=== PATIENT | male | born 1950 | race Caucasian/White ===

== ENCOUNTER 2017-10-17 11:28 | Inpatient (IN) | payer MEDICARE, OTHER ==
[2017-09-19 10:49] VITALS: BMI 29.0
--- NOTE | 2017-09-19 11:21 | PAT Medication Instructions ---
Service Date Sep 19, 2017. Current Home Medication List Acetaminophen (Tylenol), 1,500 MG PO Calcium Carbonate-Vitamin D (Calcium + D), 1 TAB PO QPM Ibuprofen (Advil), 600-800 MG PO Q6H Multivitamin (Multivitamin), 1 TAB PO QPM Simvastatin (Zocor), 20 MG PO QPM Medication Instructions For Your Scheduled Surgery - CHECK WITH YOUR SURGEON FOR INSTRUCTIONS FOR: Ibuprofen (Advil), 600-800 MG PO Q6H - Hold the following medications the morning of surgery: Acetaminophen (Tylenol), 1,500 MG PO (can be taken up to four hours before surgery) - Take the following medications as scheduled the night before surgery: Simvastatin (Zocor), 20 MG PO QPM Multivitamin (Multivitamin), 1 TAB PO QPM Calcium Carbonate-Vitamin D (Calcium + D), 1 TAB PO QPM OTHERWISE NOTHING TO EAT OR DRINK AFTER MIDNIGHT If you have any questions please call us at [phone] or [phone] or [phone]
--- NOTE | 2017-09-19 12:16 | DIAGNOSTIC IMAGING REPORT ---
CHEST 2 VIEWS ROUTINE CLINICAL HISTORY: 67 years-old Male presenting with pat. TECHNIQUE: PA and lateral views of the chest were obtained. COMPARISON: 04/18/2013. FINDINGS: Atherosclerosis of aortic arch. Cardiac silhouette normal in size. Lungs and pleural spaces clear. Mild extra curvature of the thoracic spine. Upper abdomen normal. IMPRESSION: 1. No acute cardiopulmonary disease. Electronically signed by: Evert Osborn M.D. 09/19/2017 12:14 PM Dictated Date/Time: 09/19/2017 12:12 PM
[2017-09-19 13:12] LABS: BASO % 0.5 %; BASO ABS # 0.03 K/uL (0-0.2); COMPLETE YES; EOS % 1.4 %; HEMATOCRIT 45.3 % (42-52); IG% 0.2 %; LYMPH ABS # 1.58 K/uL (1.2-3.4); MEAN CELL VOLUME 87.6 fL (80-100); MEAN CORPUSCULAR HEMOGLOBIN 28.2 pg (25-34); MEAN CORPUSCULAR HGB CONC 32.2 g/dl (32-36); MONO % 10.4 %; NEUT % 60.5 %; PLATELET COUNT 228 K/uL (130-400); RED BLOOD COUNT 5.17 M/uL (4.7-6.1); WHITE BLOOD COUNT 5.85 K/uL (4.8-10.8)
[2017-09-19 13:19] LABS: BUN/CREATININE RATIO 12.9 (10-20); CALCIUM 9.3 mg/dl (8.5-10.1); CREATININE 1.15 mg/dl (0.60-1.40); POTASSIUM 4.6 mmol/L (3.5-5.1)
[2017-09-19 13:24] LABS: PARTIAL THROMBOPLASTIN RATIO 1.2; PROTHROMBIN TIME (PATIENT) 10.6 SECONDS (9.0-12.0)
[2017-09-19 13:31] LABS: URINE APPEARANCE CLEAR (CLEAR); URINE BILIRUBIN NEG (NEG); URINE COLOR YELLOW; URINE NITRITE NEG (NEG); URINE PH 6.5 (4.5-7.5); URINE SPECIFIC GRAVITY 1.017 (1.000-1.030); UROBILINOGEN NEG (NEG)
[2017-09-19 13:38] LABS: MANUAL MICROSCOPIC REQUIRED? NO; REVIEW REQ? NO
[2017-09-19 13:49] LABS: ESTIMATED AVERAGE GLUCOSE 111 mg/dl; HA1C FLAG Normal (Normal)
--- NOTE | 2017-10-16 19:31 | HISTORY & PHYSICAL EXAMINATION ---
DATE OF ADMISSION: 10/17/2017 HISTORY OF PRESENT ILLNESS: The patient presents as a 67-year-old, 5 feet 10 inches, 205 pounds white male being seen and evaluated for complaints of ongoing pain attributable to his right shoulder. He presents with osteoarthritis of his right shoulder for hemiarthroplasty versus total shoulder arthroplasty pending findings at the time of surgery. He has failed attempts at conservative management including physical therapy, anti-inflammatories, relative rest, activity modification, viscosupplementation as well as corticosteroid injection. He presents for shoulder arthroplasty, right shoulder. PAST MEDICAL HISTORY: Significant for hypercholesterolemia, sleep apnea. He denies history of thyroid disease, diabetes or other metabolic disease. FAMILY HISTORY: Otherwise unremarkable and noncontributory. SOCIAL HISTORY: The patient denies smoking. At least 1 alcoholic drink per week. No recreational drug use. PAST SURGICAL HISTORY: Significant for previous right knee surgery. ALLERGIES: None. MEDICATIONS: Include Simvastatin A 66-year-old old white male with the above findings noted. He has been nonresponsive to conservative therapy and presents for shoulder arthroplasty. PHYSICAL EXAMINATION: HEENT: Otherwise unremarkable. HEART: Regular at 72 beats per minute. No murmurs noted. LUNGS: Clear without rales, rhonchi, or wheezes noted. ABDOMEN: Soft, nontender, nondistended. Bowel sounds are present. RECTAL: No rectal examination was performed. MUSCULOSKELETAL EXAMINATION: Consistent with that of right shoulder osteoarthritis with crepitation, limited range of motion with external rotation to neutral, limited forward flexion to 150 degrees. IMPRESSION AND PLAN: The patient denies any relief with conservative management, patient presents for shoulder hemiarthroplasty versus total shoulder arthroplasty pending findings at time of surgery. JOYA
[2017-10-17] VITALS (7 sets, daily range): BP systolic 112–152; BP diastolic 66–90; PULSE 61–84; TEMP 36.4–36.7; O2SAT 93–99; Ht 177.8 cm; Wt 93.8 kg
[~2017-10-17] VITALS: Ht 177.8 cm; Wt 93.8 kg
--- NOTE | 2017-10-17 11:16 | History & Physical Bridge Note ---
H&P Re-Evaluation Bridge Note: I have examined the patient, reviewed the History & Physical and in the interval since the performance of the History & Physical I have noted the following changes of clinical significance: No changes noted
[~2017-10-17 11:28] MED LIST: ACET-1256 PO; ACETAMINOPHEN 500 MG TAB PO SCH; BUPIVACAINE 0.25% 30 ML VIAL ONE; CALC600T9 PO; CEFAZOLIN 2000MG IV PUSH 10 ML IV SCH; CeleBREX 200 MG CAP PO SCH; DEXAMETHASONE 4 MG TAB PO SCH; DEXAMETHASONE SOD INJ 4 MG/ML VIAL ONE; EpINEphrine INJ 1MG/ML AMP 1 MG/ML AMP ONE; FAMOTIDINE 20 MG TAB PO SCH; GABAPENTIN 300 MG CAP PO SCH; IBUP-1050 PO; LACTATED RINGER'S 1000ML 1,000 ML IV SCH; METOCLOPRAMIDE HCL 10 MG TAB PO SCH; MULT-506 PO; ROPIVACAINE 5MG/ML 30 ML 150 MG, BUPIVACAINE 0.5% MPF INJ 30 ML, EpINEphrine HCL INJ 0.... INFIL SCH; SIMV20TA5 PO
[2017-10-17] MEDS ORDERED: GLYCOPYRROLATE INJ 0.2 MG/ML VIAL ONE ×2 (11:53→14:43)
[2017-10-17] MEDS ORDERED: EpHEDrine SULFATE 50MG/5ML SYR ONE (11:53)
[2017-10-17] MEDS ORDERED: MIDAZOLAM HCL 1 MG/ML 2ML VIAL ONE (11:53)
[2017-10-17] MEDS ORDERED: LIDOCAINE HCL 2% 2 ML VIAL (20MG/ML) ONE (11:53)
[2017-10-17] MEDS ORDERED: ONDANSETRON INJ 2 MG/ML 2 ML VIAL ONE (11:53)
[2017-10-17] MEDS ORDERED: DEXAMETHASONE SOD INJ 4 MG/ML VIAL ONE ×2 (11:53→14:43)
[2017-10-17] MEDS ORDERED: NEOSTIGMINE METHYLSULFATE 5 MG/5 ML SYR ONE (11:53)
[2017-10-17] MEDS ORDERED: PROPOFOL IV EMULSION 10 MG/ML 20 ML VIAL IV ONE (11:53)
[2017-10-17] MEDS ORDERED: ROCURONIUM BROMIDE 10 MG/ML 5 ML VIAL IV ONE ×2 (11:53→15:10)
[2017-10-17] MEDS ORDERED: LARYING-O-JET KIT (LTA) ONE ×2 (11:53)
[2017-10-17] MEDS ORDERED: FENTANYL CITRATE INJ 50 MCG/1 ML 2 ML VIAL ONE (11:53)
[2017-10-17] MEDS ORDERED: THROMBIN FOR SOLN 20000 UNIT KIT ONE (13:02)
[2017-10-17] MEDS ORDERED: BACITRACIN 50000 UNIT VIAL ONE (13:02)
[2017-10-17] MEDS ORDERED: FENTANYL CITRATE INJ 50 MCG/1 ML 2 ML VIAL IV PRN (14:15)
[2017-10-17] MEDS ORDERED: ONDANSETRON INJ 2 MG/ML 2 ML VIAL IV PRN ×2 (14:15→16:00)
[2017-10-17] MEDS ORDERED: ATROPINE SULFATE 0.1 MG/ML 5ML SYR IV PRN (14:15)
[2017-10-17] MEDS ORDERED: EpHEDrine SULFATE INJ 50 MG/ML AMP IV PRN (14:15)
[2017-10-17] MEDS ORDERED: ORTHO JOINT ANESTHETIC ONE (15:14)
--- NOTE | 2017-10-17 15:36 | [facility] Operative Report ---
Operative Report Operative Date Oct 17, 2017. Pre-Operative Diagnosis Right shoulder osteoarthritis Post-Operative Diagnosis Right shoulder osteoarthritis Procedure(s) Performed Right Shoulder Hemarthroplasty, Tournier hemiarthroplasty with 6 be standard short stem angle 132.586 mm stem humeral head [address] Vamshi Rios Tierce Filler Surgeon(s) Anton Oglesby PA-C Estimated Blood Loss 15ML Findings Patient presents with severe DJD of the humeral head with osteophytes as well as osteophytes in the anterior glenoid patient is failed attempts at conservative management and physical therapy anti-inflammatories relative rest activity modification presents for shoulder hemiarthroplasty. Specimens A: Right Humeral Head and Tissue Complication(s) None Disposition Recovery Room / PACU Indications Patient presents for shoulder and knee arthroplasty after failing attempts at conservative management is failed attempted injections anti-inflammatories Roto- Rest activity modification presents today for shoulder right shoulder hemiarthroplasty. Description of Procedure After proper prepping draping of the right upper 70 anterior deltopectoral incision was made dissection carried out through the cephalic veins milligrams care for protect and retract lateralward with the deltoid of the anterior deltopectoral interval having the developed both proximally and distally the wound was irrigated with copious amounts of sterile saline solution the anterior subscapularis tendon was socially reflected off the anterior humeral head the humeral head was then subsequently delivered from the wound the osteophytes and marginal ossifies were all removed as were the office flexion the anterior glenoid loperamide debris was removed the osteotomy of proximal humeral head was performed the trials were placed and sized to a size 6 be standard short stem 86 mm head 132.5 angle gave excellent anatomic fit fit subsequently have informed thorough irrigation debridement lavage the anterior cortex was drilled with standard drill bit for placement #5 FiberWire the trialing having been completed the final component was socially press-fit into position and anatomic excellent position socially the subscapularis repaired the rotator interval was repaired the deltopectoral interval was repaired #2-0 Vicryl skin was closed with skin carmela patient placed in shoulder mobilizer taken recovery in stable condition Anton HERNANDEZ was necessary for prepping draping retraction wound closure defect is subcutaneous and skin I attest to the content of the Intraoperative Record and any orders documented therein. Any exceptions are noted below.
[2017-10-17] MEDS ORDERED: MoRPHine SULFATE 2 MG/ML CARP IV PRN (16:00)
[2017-10-17] MEDS ORDERED: OXYCODONE HCL IR 5 MG TAB (IMMEDIATE RELEASE) PO PRN (16:00)
[2017-10-17] MEDS ORDERED: ALUMINUM/MAGNESIUM SUSP 30 ML UDC PO PRN (16:00)
[2017-10-17] MEDS ORDERED: MAGNESIUM HYDROXIDE SUSP 30 ML UDC PO PRN (16:00)
--- NOTE | 2017-10-17 16:48 | DIAGNOSTIC IMAGING REPORT ---
R SHOULDER MIN 2 VIEWS ROUTINE CLINICAL HISTORY: Post shoulder surgery COMPARISON: None. DISCUSSION: Evidence for right shoulder arthroplasty. Good contact between prosthetic and underlying bone. Expected soft tissue postoperative change IMPRESSION: Anatomic alignment status post right shoulder arthroplasty The above report was generated using voice recognition software. It may contain grammatical, syntax or spelling errors. Electronically signed by: Stefan Nichols M.D. 10/17/2017 4:47 PM Dictated Date/Time: 10/17/2017 4:47 PM
--- NOTE | 2017-10-17 16:49 | Anesthesiology Progress Note ---
Anesthesia Post Op Note Date & Time Oct 17, 2017 at 16:48 Vital Signs Pain Intensity: 0 Vital Signs Past 12 Hours Date Time Temp Pulse Resp B/P (MAP) Pulse Ox O2 Delivery O2 Flow Rate FiO2 10/17/17 16:45 56 16 138/81 100 Nasal Cannula 2 10/17/17 16:30 36.4 50 17 144/82 99 Nasal Cannula 2 10/17/17 16:20 58 17 150/86 99 Nasal Cannula 2 10/17/17 16:10 58 16 145/88 100 Oxymask 10 10/17/17 16:00 62 12 163/96 99 Oxymask 10 10/17/17 15:53 36.2 70 20 157/69 99 Oxymask 10 10/17/17 11:55 36.5 61 15 138/90 97 Room Air Notes Mental Status: alert / awake / arousable, participated in evaluation Pt Amnestic to Procedure: Yes Nausea / Vomiting: adequately controlled Pain: adequately controlled Airway Patency, RR, SpO2: stable & adequate BP & HR: stable & adequate Hydration State: stable & adequate Anesthetic Complications: no major complications apparent
[2017-10-17] MEDS: D5W AND 1/2NSS + 20MEQ KCL 1,000 ML IV SCH (18:14)
[2017-10-17] MEDS: KETOROLAC TROMETHAMINE 15 MG/ML VIAL IV. SCH ×2 (18:15→23:46)
[2017-10-17] MEDS ORDERED: SIMVASTATIN 20 MG TAB PO SCH (21:00)
[2017-10-17] MEDS: DOCUSATE SODIUM 100 MG CAP PO SCH (21:38)
[2017-10-17] MEDS: CEFAZOLIN IV 2,000 MG in SYRINGE 0 ML IV SCH (21:39)
[2017-10-17] MEDS: ACETAMINOPHEN 500 MG TAB PO SCH (21:39)
[2017-10-18 03:30] VITALS: BP 118/76; PULSE 88; TEMP 36.6; O2SAT 94
[2017-10-18] MEDS: D5W AND 1/2NSS + 20MEQ KCL 1,000 ML IV SCH (04:16)
[2017-10-18] MEDS: CEFAZOLIN IV 2,000 MG in SYRINGE 0 ML IV SCH (05:28)
[2017-10-18] MEDS: ACETAMINOPHEN 500 MG TAB PO SCH (05:29)
[2017-10-18] MEDS: KETOROLAC TROMETHAMINE 15 MG/ML VIAL IV. SCH ×2 (05:29→12:52)
[2017-10-18 06:03] LABS: HEMATOCRIT 43.8 % (42-52); MEAN CELL VOLUME 86.6 fL (80-100); MEAN CORPUSCULAR HEMOGLOBIN 27.1 pg (25-34); MEAN CORPUSCULAR HGB CONC 31.3 g/dl (32-36); MEAN PLATELET VOLUME 11.1 fL (7.4-10.4); PLATELET COUNT 239 K/uL (130-400); RED BLOOD COUNT 5.06 M/uL (4.7-6.1); WHITE BLOOD COUNT 11.93 K/uL (4.8-10.8)
[2017-10-18 06:38] LABS: BUN/CREATININE RATIO 14.7 (10-20); CALCIUM 8.4 mg/dl (8.5-10.1); CREATININE 1.38 mg/dl (0.60-1.40)
[2017-10-18 07:20] VITALS: BP 136/77; PULSE 88; TEMP 36.2; O2SAT 94
--- NOTE | 2017-10-18 08:20 | Orthopedic Progress Note ---
Orthopedic Progress Note Date of Service Oct 18, 2017. Subjective Post OP Day: 1 Reports: feeling well, Denies: chest pain, SOB, nausea / vomiting, light headedness, calf pain Objective calves soft nontender, N/V intact, capillary refill less than 2 sec., dressing C /D/I, A&O x3, hemovac drainage (265/75CC PER SHIFT) Date Time Temp Pulse Resp B/P (MAP) Pulse Ox O2 Delivery O2 Flow Rate FiO2 10/18/17 07:20 Room Air 10/18/17 07:20 36.2 88 16 136/77 (96) 94 Room Air 10/18/17 03:30 36.6 88 18 118/76 (90) 94 Room Air 10/17/17 23:45 Room Air 10/17/17 22:55 36.6 84 18 112/66 (81) 94 Room Air 10/17/17 20:12 36.6 77 18 132/69 (90) 94 Room Air 10/17/17 19:02 36.4 70 18 141/69 (93) 93 Room Air 10/17/17 18:12 Room Air 10/17/17 18:02 36.5 80 18 130/75 (93) 97 Nasal Cannula 2.0 10/17/17 17:30 36.7 65 18 152/87 (108) 99 Nasal Cannula 2.0 10/17/17 17:00 Nasal Cannula 2.0 10/17/17 17:00 Nasal Cannula 2.0 10/17/17 17:00 36.4 65 18 136/78 (97) 96 Nasal Cannula 2.0 10/17/17 16:45 56 16 138/81 100 Nasal Cannula 2 10/17/17 16:30 36.4 50 17 144/82 99 Nasal Cannula 2 10/17/17 16:20 58 17 150/86 99 Nasal Cannula 2 10/17/17 16:10 58 16 145/88 100 Oxymask 10 10/17/17 16:00 62 12 163/96 99 Oxymask 10 10/17/17 15:53 36.2 70 20 157/69 99 Oxymask 10 10/17/17 11:55 36.5 61 15 138/90 97 Room Air Laboratory Results 24 Hours: Test 10/18/17 05:21 Hematocrit 43.8 % Hemoglobin 13.7 g/dL Assessment & Plan Assessment: POD#1 SP RIGHT SHOULDER HEMIARTHROPASTY Plan: PT/OT DVT PROPH- PAIN MANAGEMENT- RAMIRO, TYLENOL DC PLANNING- DC HOME TODAY
[2017-10-18] MEDS ORDERED: ACET-1256 PO (08:21)
[2017-10-18] MEDS ORDERED: RXC5 PO (08:21)
[2017-10-18] MEDS ORDERED: CLB200 PEG (08:21)
[2017-10-18] MEDS ORDERED: ONDA8TAB6 PO (08:21)
--- NOTE | 2017-10-18 08:22 | Discharge Instructions ---
Discharge Instructions Date of Service Oct 18, 2017. Admission Reason for Admission: Right Shoulder Osteoarthritis Discharge Discharge Diagnosis / Problem: SP RIGHT SHOULDER HEMIARTHROPLASTY Discharge Goals Goal(s): Decrease discomfort, Improve function, Increase independence Activity Recommendations Activity Limitations: per Instructions/Follow-up section . Instructions / Follow-Up Instructions / Follow-Up ACTIVITY RECOMMENDATIONS: SELF CARE INSTRUCTIONS AFTER TOTAL SHOULDER ARTHROPLASTY A. You may do daily exercises as taught in physical therapy while in hospital. No lifting with the operative arm. Please schedule your outpatient physical therapy appointment to begin within 2-3 days after leaving the hospital. Specific restrictions will be written on your physical therapy prescription that is provided to you. B. You are to wear your sling/immobilizer at all times EXCEPT when performing your daily exercises, participating in physical therapy and for hygiene purposes. C. You may perform dry, daily dressing changes. Please keep your incision covered. You may shower 48 hours after surgery. Do not apply soap or any ointment/ lotions directly over incision. Do not soak incision in bath tub/swimming pool. D. You may use ice as needed to operative shoulder. SPECIAL CARE INSTRUCTIONS: MEDICATION INSTRUCTIONS: *It is recommended you take Aspirin 325mg daily for four weeks post-op. VERY IMPORTANT TO READ AND REVIEW A. There are a few signs you need to watch for after you are home. Call [facility] at [phone] if you experience any of the followin. Increased severe shoulder pain. Some pain is expected especially when you exercise. 2. Increased swelling in you shoulder or arm; pain or swelling in either upper extremity. 3. Any fluid drainage from the incision. 4. Shortness of breath or chest pain. B. Please call [facility] at [phone] if you have any questions or concerns about your operation or recovery. C. Call your physician if: 1. Temperature is greater than 101 degrees (F). 2. Pain is not relieved by prescribed pain medications. 3. Increase drainage or redness from incision. 4. Unanswered questions or concerns. FOLLOW UP VISIT: Please call [facility] at [phone] to schedule a follow up appointment with Dr. NUNO or his PA in 12-14 days from your surgery date. Current Hospital Diet Patient's current hospital diet: Regular Diet Discharge Diet Recommended Diet: Regular Diet Procedures Procedures Performed: Right Shoulder Hemarthroplasty, Tournier hemiarthroplasty with 6 be standard short stem angle 132.586 mm stem humeral head 52 x 23 Pending Studies Studies pending at discharge: no Laboratory Results Hemoglobin A1c Test 09/19/17 11:35 Range/Units Estimated Average Glucose 111 mg/dl Hemoglobin A1c 5.5 4.5-5.6 % Medical Emergencies . Who to Call and When: Medical Emergencies: If at any time you feel your situation is an emergency, please call 911 immediately. . Non-Emergent Contact Non-Emergency issues call your: Surgeon . "Provider Documentation" section prepared by Janey Woodruff. . VTE Core Measure Inpt VTE Proph given/why not?: Divya Chao, SCD's [place] Drug Monitoring Program Search Results: patient reviewed within database, no issues identified
[2017-10-18] MEDS: DOCUSATE SODIUM 100 MG CAP PO SCH (08:34)
[2017-10-18 09:00] VITALS: BP 136/77; PULSE 88; TEMP 36.2; O2SAT 94
[2017-10-18] MEDS ORDERED: PANTOprazole SOD 40 MG TAB PO SCH (09:00)
[2017-10-18] MEDS ORDERED: MULTIVITAMIN TAB PO SCH (09:00)
[2017-10-18 09:56] VITALS: BP 126/74; PULSE 99; O2SAT 94
--- NOTE | 2017-10-18 10:19 | Anesthesiology Progress Note ---
Anesthesia Post Op Note Date & Time Oct 18, 2017 at 10:19 Vital Signs Vital Signs Past 12 Hours Date Time Temp Pulse Resp B/P (MAP) Pulse Ox O2 Delivery O2 Flow Rate FiO2 10/18/17 09:00 36.2 88 16 94 Room Air 10/18/17 07:20 Room Air 10/18/17 07:20 36.2 88 16 136/77 (96) 94 Room Air 10/18/17 03:30 36.6 88 18 118/76 (90) 94 Room Air 10/17/17 23:45 Room Air 10/17/17 22:55 36.6 84 18 112/66 (81) 94 Room Air Notes Mental Status: alert / awake / arousable, participated in evaluation Pt Amnestic to Procedure: Yes Nausea / Vomiting: adequately controlled Pain: adequately controlled Airway Patency, RR, SpO2: stable & adequate BP & HR: stable & adequate Hydration State: stable & adequate Anesthetic Complications: no major complications apparent
== END 2017-10-18 13:42 | disposition home or self-care (01) | DRG 483 ==
LOC: C.ACU 11:28 → C.3E 12:00 → ENRESERV 16:28
PROVIDERS: ADMIT Orthopaedic Surgery; ATTEND Orthopaedic Surgery
PROC: 0RRJ0J6 Replacement of Right Shoulder Joint with Synthetic Substitute, Humeral Surface, Open Approach (ICD-10-PCS; principal; 2017-10-17 14:00)
DX: M19.011 Primary osteoarthritis, right shoulder (principal); E78.00 Pure hypercholesterolemia, unspecified; G47.30 Sleep apnea, unspecified; Z79.1 Long term (current) use of non-steroidal anti-inflammatories (NSAID)

== ENCOUNTER 2019-11-10 04:52 | Inpatient (IN) ==
--- NOTE | 2019-10-14 15:46 | PAT Medication Instructions ---
Medication Instructions Date of Service October 14, 2019 Home Medications calcium carbonate [Calcium 600] 600 mg PO HS flaxseed oil 1,000 mg PO BID multivitamin 1 cap PO HS propranolol 40 mg PO BID simvastatin 20 mg PO HS STOP taking 2 weeks before surgery If surgery is within 2 weeks, stop taking as soon as possible. flaxseed oil 1,000 mg PO BID Take morning of surgery With a small sip of water, OTHERWISE NOTHING TO EAT OR DRINK AFTER MIDNIGHT: propranolol 40 mg PO BID Take evening before surgery calcium carbonate [Calcium 600] 600 mg PO HS multivitamin 1 cap PO HS propranolol 40 mg PO BID simvastatin 20 mg PO HS Other Notes If you have any questions please call us at [phone] or [phone] or [phone] or [phone]
--- NOTE | 2019-10-15 12:38 | Anesthesiology Consultation ---
Date of Service October 15, 2019 Assessment & Plan (1) Encounter for pre-operative examination: PCP Clearance 10/14/19 = "Patient is an acceptable surgical candidate." Chart Review Chart Review: Acceptable Risk for Surgery and Patient seen in Pre Admission Testing Teaching & Discussion Instructed NPO after midnight before surgery, except medications with 15 cc of water. Medication instructions provided according to the PAT guidelines. History Surgery Operation Date: 11/10/19 09:30 Proposed Procedures p Left Total Hip Arthroplasty Anterior - J Luis Esquivel DO Height/Weight Height: 5 ft 10 in Weight: 95.9 kg Allergies Allergy/AdvReac Type Severity Reaction Status Date / Time No Known Allergies Allergy Mild Verified 10/08/19 10:16 Medications Home Medications Medication Instructions Recorded Confirmed Last Taken calcium carbonate [Calcium 600] 600 mg PO HS 10/08/19 10/08/19 Unknown flaxseed oil 1,000 mg PO BID 10/08/19 10/08/19 10/08/19 multivitamin 1 cap PO HS 10/08/19 10/08/19 Unknown propranolol 40 mg PO BID 10/08/19 10/08/19 10/08/19 simvastatin 20 mg PO HS 10/08/19 10/08/19 10/07/19 Past Medical History Medical History Hyperlipidemia Osteoarthritis Sleep apnea CPAP HS Tremor of both hands On Propranolol Exercise / Class Metabolic Activity II 4-5 Yardwork/Stairs/Walk up hill (Denies CP or SOB with 1 FOS, does daily) Past Family History Family History (Updated 10/08/19 @ 10:23 by Kirt Knight RN) Other Family history of colon cancer in father Past Surgical History Surgical History History of carpal tunnel surgery of right wrist History of colonoscopy History of right shoulder replacement History of tonsillectomy History of total right knee replacement (TKR) Past Anesthesia History No Hx of Anesthesia Complications and No Family Hx of Anesthesia Complications History of PONV No Hx of PONV and No Hx of Motion Sickness Social History Smoking Status: Former smoker tobacco type: cigarettes Do You Dip or Chew Tobacco: No Smoking End Date: 1972 Hx Alcohol Use: Yes Alcohol type: beer, wine and hard liquor alcohol intake frequency: a few times a week Hx Substance Use: No substance use type: does not use Review of Systems Pt denies any recent chest pain, shortness of breath, palpitations, cough, fever or URI. Physical Exam Vital Signs BP: 114/71 P: 71bpm SPO2: 95% RA T: 98.1 F R: 14 ENMT Mouth: + chipped teeth (R upper canine); no dental restorations and no loose teeth Thyromental Distance: < 3.5 Finger Breadths (2.5) Mallampati Class: II Neck normal visual inspection and + limited neck extension Respiratory normal respiratory effort Auscultation: lungs clear to auscultation bilaterally Cardiovascular Rate/Rhythm: regular rate and regular rhythm Heart Sounds: no murmur Vessels: no carotid bruit Extremities: no edema Testing Laboratory Results 10/15/19 12:48 10/15/19 12:48 PT 10.7 Seconds (9.0-12.0) 10/15/19 12:48 INR 1.0 (0.9-1.1) 10/15/19 12:48 APTT 29.3 Seconds (21.0-31.0) 10/15/19 12:48 Hemoglobin A1c 5.5 % (4.5-5.6) 10/15/19 12:48 Urine Color Yellow 10/15/19 Unknown Urine Appearance Clear (Clear) 10/15/19 Unknown Urine pH 5.5 (4.5-7.5) 10/15/19 Unknown Ur Specific [place] 1.022 (1.000-1.030) 10/15/19 Unknown Urine Protein Negative (Negative) 10/15/19 Unknown Urine Glucose (UA) Negative (Negative) 10/15/19 Unknown Urine Ketones Negative (Negative) 10/15/19 Unknown Urine Nitrite Negative (Negative) 10/15/19 Unknown Ur Leukocyte Esterase Negative (Negative) 10/15/19 Unknown Blood Type A Positive 10/15/19 12:48 Antibody Screen NEGATIVE 10/15/19 12:48 Electrocardiogram Date: 10/15/19 Findings: + NSR @ (64) and + RBBB Chest X-Ray Date: 10/15/19 Findings: + NAD
[2019-10-15 13:14] LABS: Basophils # (auto) 0.03 K/uL (0-0.2); Basophils % (auto) 0.3 %; Eosinophils # (auto) 0.12 K/uL (0-0.5); Eosinophils % (auto) 1.4 %; Hematocrit (blood only) 47.1 % (42-52); Hemoglobin 15.4 g/dL (14.0-18.0); Immature Granulocytes # (auto) 0.01 K/uL (0.00-0.02); Immature Granulocytes % (auto) 0.1 %; Lymphocytes # (auto) 1.18 K/uL (1.2-3.4); Lymphocytes % (auto) 13.6 %; Mean Corpuscular Hemoglobin 30.3 pg (25-34); Mean Corpuscular Hgb Conc 32.7 g/dL (32-36); Mean Corpuscular Volume 92.5 fL (80-100); Mean Platelet Volume 11.2 fL (7.4-10.4); Monocytes # (auto) 1.15 K/uL (0.11-0.59); Monocytes % (auto) 13.3 %; Neutrophils # (auto) 6.18 K/uL (1.4-6.5); Neutrophils % (auto) 71.3 %; Platelet Count 175 K/uL (130-400); RDW Coefficient of Variation 13.9 % (11.5-14.5); RDW Standard Deviation 47.1 fL (36.4-46.3); Red Blood Count 5.09 M/uL (4.7-6.1); White Blood Count 8.67 K/uL (4.8-10.8)
[2019-10-15 13:19] LABS: Appearance Urine Clear (Clear); Bilirubin Urine Negative (Negative); Blood Urine Negative (Negative); Color Urine Yellow; Glucose Urine UA Negative (Negative); Ketones Urine Negative (Negative); Leukocyte Esterase Urine Negative (Negative); Nitrite Urine Negative (Negative); Protein Urine Negative (Negative); Specific Gravity Urine 1.022 (1.000-1.030); Urobilinogen Urine Negative (Negative); pH Urine 5.5 (4.5-7.5)
--- NOTE | 2019-10-15 13:25 | XRay Report ---
XR chest Pre-admission PA/Lat HISTORY: Preop. COMPARISON: Chest 04/18/2013. FINDINGS: No pneumothorax. No pleural effusions. The heart is normal in size. Calcified AP window and left hilar lymph nodes are again noted. No new focal lung consolidations. No evidence for pulmonary edema. There is a right shoulder prosthesis. Faint nodular density at the left lung base is demonstra cary to be a nipple shadow on the lateral view. IMPRESSION: No acute process. Electronically signed by: Medhat Altman M.D. 10/15/2019 1:24 PM
[2019-10-15 13:31] LABS: Estimated Average Glucose 111 mg/dl; Hemoglobin A1C 5.5 % (4.5-5.6)
[2019-10-15 13:36] LABS: Partial Thromboplastin Ratio 1.1; Partial Thromboplastin Time 29.3 Seconds (21.0-31.0); Prothrombin Time 10.7 Seconds (9.0-12.0)
[2019-10-15 15:49] LABS: Albumin Level 3.6 gm/dl (3.4-5.0); BUN Creatinine Ratio 12.7 (10-20); Calcium 9.2 mg/dl (8.5-10.1); Creatinine Clr Calc Pharmacy 57.1 ml/min; Est GFR (African American) 59.2; Est GFR (Non-African American) 51.1; Potassium 3.8 mmol/L (3.5-5.1)
--- NOTE | 2019-11-09 12:33 | History & Physical Report ---
Date of Service November 09, 2019 Assessment & Plan (1) Degenerative joint disease of left hip: I have indicated the patient for left anterior total hip replacement. The risks, benefits and complications of surgery were explained to the patient which include but not limited to infection, acute blood loss, DVT/PE, injury to nerves, vessels, bone, soft tissue, arthrofibrosis, chronic pain, failure of the prosthesis, hip dislocation, leg length discrepancy, need for additional surgery, cardiac and pulmonary events and . The patient wished to proceed with surgery and informed consent was obtained at this time. We will plan for ASA BID post-operatively for DVT prophylaxis. Upon discharge the patient will be discharged home with home health services. Appropriate clearances by PCP were obtained. History of Present Illness Chief Complaint: Left hip pain/djd Primary Care Provider: Cholo Paul MD The patient is a 69 year old male who presents with complaints of severe left hip pain and DJD. The patient has failed outpatient conservative treatments to this point which included NSAIDs, IA corticosteroid injection, home exercise/walking program. The patient's pain and limited function have progressed to the point where they severely hinder their activities of daily living and they no longer tolerate exercise programs. They are requesting to proceed with total hip replacement surgery. Allergies Allergy/AdvReac Type Severity Reaction Status Date / Time No Known Allergies Allergy Mild Verified 11/10/19 05:37 Home Medications Home Medications Medication Instructions Recorded Confirmed Type calcium carbonate [Calcium 600] 600 mg PO HS 10/08/19 11/10/19 History flaxseed oil 1,000 mg PO BID 10/08/19 10/08/19 History multivitamin 1 cap PO HS 10/08/19 11/10/19 History propranolol 40 mg PO BID 10/08/19 10/08/19 History simvastatin 20 mg PO HS 10/08/19 10/08/19 History Past Med/Surg History Medical History Hyperlipidemia Osteoarthritis Sleep apnea CPAP HS Tremor of both hands On Propranolol Surgical History History of carpal tunnel surgery of right wrist History of colonoscopy History of right shoulder replacement History of tonsillectomy History of total right knee replacement (TKR) Family History Other Family history of colon cancer in father Social History Preferred Language: Latvian Communication Ability: Effective 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 Beliefs That Will Affect Care: None Current Living Situation: Spouse Other Information That Helps Us Care for You: No Feels Safe at Home: Yes Smoking Status: Former smoker Tobacco Type: cigarettes ; Do You Dip or Chew Tobacco: No ; Smoking End Date: 1972 ; Hx Alcohol Use: Yes Alcohol type: beer, wine and hard liquor Hx Substance Use: No Review of Systems Review of Systems: All systems reviewed & are unremarkable except as noted in HPI & below Constitutional: as per Subjective / HPI Physical Exam Physical Exam: LLE NVSI +EHL/FHL/TA/GS SILT grossly, +2 DP pulse, compartments soft NT, limited painful ROM, antalgic gait. Constitutional: WD/WN, vitals as above Eyes: PERRL, conjunctivae normal, anicteric sclerae ENMT: external ear and nose normal, oropharynx normal Neck: trachea midline, no thyromegaly Respiratory: normal respiratory effort, lungs clear to auscultation Cardiovascular: RRR, no murmur, no edema Gastrointestinal (Abdomen): normal bowel sounds, soft, nontender, no hepatosplenomegaly Musculoskeletal: no cyanosis or clubbing, extremities motor strength 5/5 Skin: no rashes, warm and dry Neurologic: patellar DTR's 2+ bilat, sensation intact Psychiatric: A+Ox3, euthymic affect Lymphatic: no cervical or axillary lymphadenopathy Results & Data Diagnostic Findings Multiple views of the hip demonstrates severe DJD with complete loss of the joint space. +osteophytes, +sclerosis, +subchondral cysts.
[2019-11-10] MEDS ORDERED: FAMOTIDINE 20 MG TAB PO SCH (06:00)
[2019-11-10] MEDS ORDERED: TRANEXAMIC ACID 1,000 MG **IV Intra-op IV SCH (06:00)
[2019-11-10] MEDS ORDERED: TRANEXAMIC ACID 1,000 MG **IV Pre-op IV SCH (06:00)
[2019-11-10] MEDS ORDERED: CEFAZOLIN 2000MG 2,000 MG/15 ML SYR IV SCH (06:00)
[2019-11-10] MEDS ORDERED: GABAPENTIN 300 MG CAP PO SCH (06:00)
[2019-11-10] MEDS ORDERED: CeleBREX 200 MG CAP PO SCH (06:00)
[2019-11-10] MEDS ORDERED: LR 500ML BOLUS, THEN 15ML/HR IV SCH (06:00)
[2019-11-10] MEDS ORDERED: ACETAMINOPHEN 500 MG TAB PO SCH (06:00)
[2019-11-10] MEDS ORDERED: ROPIVACAINE 0.5% HCL/PF 150 MG, BUPIVACAINE 0.5% MPF 30 ML, EPINEPHrine 30MG/30ML (OR U... INSTIL SCH (06:00)
[2019-11-10] MEDS ORDERED: METOCLOPRAMIDE HCL 10 MG TABLET PO SCH (06:00)
[2019-11-10] MEDS ORDERED: dexAMETHasone 4 MG TAB PO SCH (06:00)
[2019-11-10] MEDS ORDERED: BUPIVACAINE 0.5 % 5 MG/1 ML PF 10ML VIAL ONE (06:28)
[2019-11-10] MEDS ORDERED: BACITRACIN INJ 50,000 UNIT VIAL ONE (06:37)
[2019-11-10] MEDS ORDERED: ORTHO JOINT ANESTHETIC ONE (06:37)
[2019-11-10] MEDS ORDERED: fentaNYL citrate 100 MCG/2 ML VIAL IV PRN (06:39)
[2019-11-10] MEDS ORDERED: ePHEDrine sulfate 50 MG/ML AMP IV PRN (06:39)
[2019-11-10] MEDS ORDERED: MIDAZOLAM HCL 1 MG/ML 2ML VIAL ONE (06:39)
[2019-11-10] MEDS ORDERED: ATROPINE SULFATE 0.1 MG/ML 10ML SYR IV PRN (06:39)
[2019-11-10] MEDS ORDERED: ONDANSETRON INJ 2 MG/ML 2 ML VIAL IV PRN ×2 (06:39→10:24)
[2019-11-10] MEDS ORDERED: ONDANSETRON INJ 2 MG/ML 2 ML VIAL ONE (06:39)
[2019-11-10] MEDS ORDERED: PROPOFOL IV EMULSION 10 MG/ML 20 ML VIAL IV ONE ×4 (06:39→09:12)
--- NOTE | 2019-11-10 06:51 | History & Physical Bridge Note ---
Date of Service November 10, 2019 History & Physical Bridge Note I have examined the patient, reviewed the History & Physical and in the interval since the performance of the History & Physical I have noted the following changes of clinical significance: no changes noted
--- NOTE | 2019-11-10 09:09 | Post Operative Brief Note ---
Immediate Post Op Note v1 Date of Surgery November 10, 2019 Pre & Post Diagnosis Operation Date: 11/10/19 07:00 Pre-Op Diagnosis: LEFT HIP OSTEOARTHRITIS Post-Op Diagnosis: LEFT HIP OSTEOARTHRITIS I identified the patient and participated in the time-out.: Yes Procedure Operation Date: 11/10/19 07:00 Actual Procedures p Left Total Hip Arthroplasty Anterior(Left) - J Luis Esquivel DO Surgeon J Luis Esquivel DO Director Private Dave Boo Estimated Blood Loss 165 Findings Consistent with Post-Op Diagnosis Fluids 1700 cc LR Specimens Femoral head Anesthesia Type Spinal MAC Complications none Disposition Disposition: Recovery Room Overlapping Procedure I was present for: the critical portions of procedure. I was immediately available: during the entire case. Back up surgeon: was not required during procedure.
--- NOTE | 2019-11-10 09:09 | Operative Report ---
Post Operative Report Pre & Post Diagnosis Operation Date: 11/10/19 07:00 Pre-Op Diagnosis: LEFT HIP OSTEOARTHRITIS Post-Op Diagnosis: LEFT HIP OSTEOARTHRITIS I identified the patient and participated in the time-out.: Yes Procedure Operation Date: 11/10/19 07:00 Actual Procedures p Left Total Hip Arthroplasty Anterior(Left) - J Luis Esquivel DO Surgeon J Luis Esquivel DO Level Vial Marker Dave Boo Estimated Blood Loss 165 Findings Consistent with Post-Op Diagnosis Specimens Femoral head Anesthesia Type Spinal MAC Complications none Disposition Disposition: Recovery Room Indications The patient is a 69-year-old male who presents with severe progressive left hip DJD who has failed outpatient conservative treatments. I indicated the patient for a anterior total hip replacement and the risks and benefits were explained in detail which include but not limited to infection, bleeding, blood clot, damage to surrounding bone, nerves, vessels, soft tissue, hip dislocation, failure of the prosthesis, leg length discrepancy, need for additional surgery and . The patient agreed to proceed with replacement of the hip and informed consent was obtained. Appropriate clearances were obtained. Description of Procedure COMPONENTS USED: [employer] hip system: Acetabulum size 58, femur size 9 standard offset, femoral head 36+0, liner 5836, acetabular screw 25 mm x 1. DESCRIPTION OF PROCEDURE: Following satisfactory spinal anesthesia, the patient was placed supine on the OR table. The right leg was placed in the well leg russell and the left leg in the traction device. The left leg was prepared with ChloraPrep and draped sterilely. A surgical timeout was performed, patient identified and site brayan verified. Appropriate antibiotics were given. A standard anterior approach in the interval between the sartorius and tensor muscles was performed. Dissection was carried down through subcutaneous tissues. Electrocautery was utilized for hemostasis. Circumflex femoral vessels were identified, tied and ligated. The anterior capsular fat pad was removed and the capsulotomy was performed revealing the arthritic femoral neck and head. A femoral neck cut was made with reciprocating saw and the bone fragments removed. The acetabular self-retraining retractor was placed. Acetabular reaming was completed under fluoroscopic guidance, a 58 shell was impacted into an anatomic position and secured with a dome screw. Local anesthetic was placed and following irrigation, the polyethylene liner was placed. The femur was placed into position of external rotation, extension and adduction. Femoral canal was prepared up to the size 9 standard offset. Trial reduction with a +0 neck length head showed good soft tissue tension, leg elkin ths restored, and good fit and fill of the proximal canal using fluoroscopic landmarks. The hip was dislocated. The trial component was removed. The final implant was placed. The hip was irrigated with sterile saline solution and reduced. A Betadine soak was performed. After 3 minutes, the hip was once more irrigated with copious sterile saline solution with bacitracin. Jordana-incisional soft tissue was injected utilizing [employer] which includes a combination of Ropivicaine 0.5% 150mg, Bupivicaine 0.5%/Epinephrine 1:200,000 30ml, Toradol 30mg, Dexamethasone 4mg, Ketamine 10mg, Clonidine 100mcg and NSS 30ml solution. The capsule was then closed with 1-0 Vicryl interrupted figure of eight sutures. The fascia was closed with a running suture of #1 Vicryl, the subcutaneous ti ssues with 2-0 Vicryl and the skin with a running subcuticular stitch of 3-0 V- Loc. Dermabond prineo and a dry dressing were applied. The patient tolerated the procedure well and was transported to PACU in stable condition. Due to the complex nature of the procedure, the entire surgery was performed with the operational assistance of Dave boo PA-C. The permit review assistant, under direct supervision, was involved in the actual performance of all aspects of the surgical procedure including patient positioning, hemostasis, tissue retraction, instrument management and wound closure. I attest to the content of the Intraoperative Record and any orders documented therein. Any exceptions are noted below.
--- NOTE | 2019-11-10 09:41 | XRay Report ---
SINGLE VIEW PELVIS; SINGLE VIEW LEFT HIP CLINICAL HISTORY: Postoperative examination. FINDINGS: An AP portable view of the hips and pelvis with a crosstable lateral portable view of the l eft hip are obtained. A bipolar left hip arthroplasty is in near-anatomic alignment. A single cortica l lag screw transfixes the acetabular cup. No acute fracture is identified. There are expected postop erative changes overlying the left hip including subcutaneous gas and soft tissue swelling. Phlebolit hs are noted in the pelvis. Moderate to advanced arthritic changes seen in the right hip. IMPRESSION: Expected postoperative findings status post left hip arthroplasty. No acute fracture is s een. ACT 112: Negative or not required by law. Electronically signed by: Gene Ferraro M.D. 11/10/2019 9:40 AM
--- NOTE | 2019-11-10 09:50 | Anesthesiology Progress Note ---
Date of Service November 10, 2019 Anesthesia Post Procedure Vital Signs Vital Signs: Temp Pulse Pulse Resp BP Pulse Ox 11/10/19 09:45 59 L 14 123/72 99 11/10/19 09:35 64 15 125/65 99 11/10/19 09:26 97.9 F 72 17 126/69 96 11/10/19 05:39 98.1 F 57 L 20 153/89 H 97 Pain Intensity Left Hip: Pain Intensity: 5 Right Hip: Pain Intensity: 8 Transfer of Care Handoff Completed per policy Notes Mental Status: alert / awake / arousable and participated in evaluation Patient Amnestic to Procedure: Yes Nausea / Vomiting: adequately controlled Pain: adequately controlled Airway Patency, RR, SpO2: stable & adequate BP & HR: stable & adequate Hydration State: stable & adequate Neuraxial Anesthesia: was administered and sensory block is resolving Anesthetic Complications: no major complications apparent and Pt Satisfied with anesthetic care
[2019-11-10] MEDS ORDERED: bisacodyL 10 MG SUPP PR PRN (10:24)
[2019-11-10] MEDS ORDERED: METOCLOPRAMIDE HCL INJ 5 MG/ML 2 ML VIAL IV PRN (10:24)
[2019-11-10] MEDS ORDERED: MAGNESIUM HYDROXIDE SUSP 30 ML UDC PO PRN (10:24)
[2019-11-10] MEDS ORDERED: HYDROmorphone INJ 0.5 MG/0.5 ML SYR IV PRN (10:24)
[2019-11-10] MEDS ORDERED: OXYCODONE HCL IR 5 MG TAB (IMMEDIATE RELEASE) PO PRN (10:24)
[2019-11-10] MEDS ORDERED: NALOXONE HCL 0.4 MG/1 ML VIAL/CARP IV PRN (10:24)
--- NOTE | 2019-11-10 10:51 | Fluoroscopy Report ---
FL hip LT 1V CLINICAL HISTORY: LEFT ANTERIOR HIP COMPARISON STUDY: None. FLUOROSCOPY TIME: 47 seconds. FINDINGS: 2 fluoroscopic spot images of the left hip demonstrate a left total hip arthroplasty. The h ardware is intact. No fracture or dislocation. IMPRESSION: Fluoroscopy provided for left total hip arthroplasty. ACT 112: Negative or not required by law. Electronically signed by: Medhat Altman M.D. 11/10/2019 10:49 AM
[2019-11-10] MEDS: SODIUM CHLORIDE 0.9% 1000ML 1,000 ML IV SCH ×2 (12:25→21:05)
[2019-11-10] MEDS: KETOROLAC TROMETHAMINE 15 MG/ML VIAL IV SCH ×3 (12:26→23:22)
[2019-11-10] MEDS: ACETAMINOPHEN 500 MG TAB PO SCH ×2 (13:30→21:00)
--- NOTE | 2019-11-10 15:05 | Orthopedic Progress Note ---
Date of Service November 10, 2019 Assessment & Plan (1) Degenerative joint disease of left hip: s/p Left anterior RICHIE -ancef x 24 -DVT ppx: SCDs, TEDs, ASA BID -WBAT LLE -PT/OT -PO XR demonstrates a well aligned well fixed prosthesis without fracture/dislocation - am labs -DC planning Subjective Post Operative Progress Note Patient seen sitting up in bed, comfortable, denies complaints, pain well controlled, no acute issues. Review of Systems Review of Systems: All systems reviewed & are unremarkable except as noted in HPI & below Constitutional: as per Subjective / HPI Physical Exam Physical Exam: LLE NVSI +EHL/FHL/TA/GS SILT grossly, +2 DP pulse, compartments soft NT, dressing cdi. Constitutional: WD/WN, vitals as above Results & Data Vital Signs (Past 12 Hours) Vital Signs Temp Pulse Pulse Resp BP Pulse Ox 11/10/19 13:31 65 16 116/74 96 11/10/19 12:18 36.3 C L 63 18 107/70 93 11/10/19 11:03 36.1 C L 50 L 18 113/70 95 11/10/19 10:24 36.2 C L 54 L 18 104/75 92 11/10/19 10:05 36.2 C L 61 16 114/73 96 11/10/19 10:00 36.6 C 58 L 14 118/70 96 11/10/19 09:45 59 L 14 123/72 99 11/10/19 09:35 64 15 125/65 99 11/10/19 09:26 36.6 C 72 17 126/69 96 11/10/19 05:39 36.7 C 57 L 20 153/89 H 97
[2019-11-10] MEDS: CEFAZOLIN 2000MG 2,000 MG/15 ML SYR IV SCH ×2 (16:22→23:21)
[2019-11-10] MEDS ORDERED: SIMVASTATIN 20 MG TAB PO SCH (21:00)
[2019-11-10] MEDS: DOCUSATE SODIUM 100 MG CAP PO SCH (21:00)
[2019-11-10] MEDS ORDERED: SENNA 8.6 MG TAB PO SCH (21:00)
[2019-11-11 05:10] LABS: Hematocrit (blood only) 35.1 % (42-52); Hemoglobin 11.6 g/dL (14.0-18.0); Immature Granulocytes # (auto) 0.02 K/uL (0.00-0.02); Immature Granulocytes % (auto) 0.2 %; Lymphocytes # (auto) 1.18 K/uL (1.2-3.4); Mean Corpuscular Hemoglobin 29.6 pg (25-34); Mean Corpuscular Volume 89.5 fL (80-100); Mean Platelet Volume 10.8 fL (7.4-10.4); Monocytes # (auto) 1.38 K/uL (0.11-0.59); Monocytes % (auto) 11.7 %; Neutrophils # (auto) 9.18 K/uL (1.4-6.5); Neutrophils % (auto) 78.1 %; Platelet Count 176 K/uL (130-400); RDW Coefficient of Variation 13.8 % (11.5-14.5); RDW Standard Deviation 45.5 fL (36.4-46.3); Red Blood Count 3.92 M/uL (4.7-6.1); White Blood Count 11.76 K/uL (4.8-10.8)
[2019-11-11] MEDS: KETOROLAC TROMETHAMINE 15 MG/ML VIAL IV SCH (05:10)
[2019-11-11] MEDS: ACETAMINOPHEN 500 MG TAB PO SCH (05:10)
[2019-11-11 05:35] LABS: Calcium 8.2 mg/dl (8.5-10.1); Creatinine Clr Calc Pharmacy 58.4 ml/min; Est GFR (African American) 60.8; Est GFR (Non-African American) 52.4; Potassium 3.9 mmol/L (3.5-5.1)
[2019-11-11] MEDS ORDERED: ROPIVACAINE 0.5% HCL/PF 150 MG, BUPIVACAINE 0.5% MPF 30 ML, EPINEPHrine 0.15 MG, Ketoro... INFIL SCH (06:00)
--- NOTE | 2019-11-11 07:06 | Orthopedic Progress Note ---
Date of Service November 11, 2019 Assessment & Plan (1) Degenerative joint disease of left hip: s/p Left anterior RICHIE POD#1 -ancef x 24 -DVT ppx: SCDs, TEDs, ASA BID -WBAT LLE -PT/OT -PO XR demonstrates a well aligned well fixed prosthesis without fracture/dislocation - am labs - hgb 11.6 -DC planning - DC with HH Subjective Post Operative Progress Note Patient seen sitting up in bed, comfortable, denies complaints, pain well controlled, no acute issues. Denies fevers, chills, nausea, vomiting, shortness of breath or chest pain. Review of Systems Review of Systems: All systems reviewed & are unremarkable except as noted in HPI & below Constitutional: as per Subjective / HPI Physical Exam Physical Exam: LLE NVSI +EHL/FHL/TA/GS SILT grossly, +2 DP pulse, compartments soft NT, dressing cdi. Constitutional: WD/WN, vitals as above Results & Data Vital Signs (Past 12 Hours) Vital Signs Temp Pulse Resp BP Pulse Ox 11/11/19 03:44 36.5 C 72 16 111/66 93 11/10/19 22:49 36.6 C 72 16 119/62 94 11/10/19 19:48 36.3 C L 78 16 113/71 93 Laboratory Results 11/11/19 11/11/19 Range/Units 04:51 04:51 WBC 11.76 H (4.8-10.8) K/uL RBC 3.92 L (4.7-6.1) M/uL Hgb 11.6 L (14.0-18.0) g/dL Hct 35.1 L (42-52) % MCV 89.5 (80-100) fL MCH 29.6 (25-34) pg MCHC 33.0 (32-36) g/dL RDW Std Deviation 45.5 (36.4-46.3) fL RDW Coeff of Rashad 13.8 (11.5-14.5) % Plt Count 176 (130-400) K/uL MPV 10.8 H (7.4-10.4) fL Immature Gran % (Auto) 0.2 % Neut % (Auto) 78.1 % Lymph % (Auto) 10.0 % [place] % (Auto) 11.7 % Eos % (Auto) 0.0 % Baso % (Auto) 0.0 % Immature Gran # (Auto) 0.02 (0.00-0.02) K/uL Neut # (Auto) 9.18 H (1.4-6.5) K/uL Lymph # (Auto) 1.18 L (1.2-3.4) K/uL [place] # (Auto) 1.38 H (0.11-0.59) K/uL Eos # (Auto) 0.00 (0-0.5) K/uL Baso # (Auto) 0.00 (0-0.2) K/uL Sodium 139 (136-145) mmol/L Potassium 3.9 (3.5-5.1) mmol/L Chloride 110 H (98-107) mmol/L Carbon Dioxide 23 (21-32) mmol/L Anion Gap 6.0 (3-11) BUN 24 H (7-18) mg/dl Creatinine 1.35 (0.6-1.4) mg/dl Est Cr Clr Drug Dosing 58.4 ml/min Est GFR ( Amer) 60.8 Est GFR (Non-Af Amer) 52.4 BUN/Creatinine Ratio 18.0 (10-20) Glucose 131 H (70-99) mg/dl Calcium 8.2 L (8.5-10.1) mg/dl
[2019-11-11] MEDS: DOCUSATE SODIUM 100 MG CAP PO SCH (08:10)
--- NOTE | 2019-11-11 08:13 | Anesthesiology Progress Note ---
Date of Service November 11, 2019 Anesthesia Post Procedure Vital Signs Vital Signs: Temp Pulse Pulse Resp BP Pulse Ox 11/11/19 07:49 36.5 C 76 18 122/68 95 11/11/19 07:20 36.5 C 76 18 122/68 95 11/11/19 03:44 36.5 C 72 16 111/66 93 11/10/19 22:49 36.6 C 72 16 119/62 94 11/10/19 19:48 36.3 C L 78 16 113/71 93 11/10/19 15:17 36.3 C L 76 17 113/72 96 11/10/19 13:31 65 16 116/74 96 11/10/19 12:18 36.3 C L 63 18 107/70 93 11/10/19 11:03 36.1 C L 50 L 18 113/70 95 11/10/19 10:24 36.2 C L 54 L 18 104/75 92 11/10/19 10:05 36.2 C L 61 16 114/73 96 11/10/19 10:00 36.6 C 58 L 14 118/70 96 11/10/19 09:45 59 L 14 123/72 99 11/10/19 09:35 64 15 125/65 99 11/10/19 09:26 36.6 C 72 17 126/69 96 Pain Intensity Left Hip: Pain Intensity: 1 Right Hip: Pain Intensity: 8 Notes Mental Status: alert / awake / arousable and participated in evaluation Patient Amnestic to Procedure: Yes Nausea / Vomiting: adequately controlled Pain: adequately controlled Airway Patency, RR, SpO2: stable & adequate BP & HR: stable & adequate Hydration State: stable & adequate Neuraxial Anesthesia: was administered and sensory block resolved Anesthetic Complications: no major complications apparent and Pt Satisfied with anesthetic care
[2019-11-11] MEDS ORDERED: PROPRANOLOL HCL 20 MG TAB PO SCH (09:00)
[2019-11-11] MEDS ORDERED: MULTIVITAMIN TAB PO SCH (09:00)
[2019-11-11] MEDS ORDERED: ASPIRIN 325 MG ECTAB PO SCH (09:00)
[2019-11-11] MEDS ORDERED: CeleBREX 200 MG CAP PO SCH (21:00)
--- NOTE | 2019-11-12 21:14 | Discharge Summary ---
Date of Service November 12, 2019 Admission HPI Per Admitting Provider The patient is a 69 year old male who presents with complaints of severe left hip pain and DJD. The patient has failed outpatient conservative treatments to this point which included NSAIDs, IA corticosteroid injection, home exercise/walking program. The patient's pain and limited function have progressed to the point where they severely hinder their activities of daily living and they no longer tolerate exercise programs. They are requesting to proceed with total hip replacement surgery. Principal Diagnosis Left anterior total hip replacement Discharge Exam LLE NVSI +EHL/FHL/TA/GS SILT grossly, +2 DP pulse, compartments soft NT, dressing cdi. Constitutional WD/WN, vitals as above Discharge Data Allergies Allergy/AdvReac Type Severity Reaction Status Date / Time No Known Allergies Allergy Mild Verified 11/10/19 05:37 Consultations 11/11/19 08:00 Consult Case Management - Discharge Planning Routine Procedures Performed Operation Date: 11/10/19 07:00 Actual Procedures p Left Total Hip Arthroplasty Anterior(Left) - J Luis Esquivel DO Ordered Studies 11/10/19 07:00 FL fluoroscopy <1hr Routine FL hip LT 1V Routine Hospital Course (1) Degenerative joint disease of left hip: The patient is a 69 -year-old male who presents with long standing history of severe left hip DJD and failed outpatient conservative treatments. The patient's symptoms have progressed to the point where it has been difficult to perform even normal activities of daily living. I indicated the patient for a left anterior total hip arthroplasty, the risks, benefits and complications of the procedure include but not limited to infection, bleeding, damage to bone, nerves, vessels, surrounding soft tissue, may develop blood clots, loss of function, leg length discrepancy, dislocation, failure of the components, loosening of the components, the need for additional surgery and . The patient wished to proceed with surgery at this time and informed consent was obtained. Hospital Course: On 11/10/19 the patient was taken to the operating room, adequate anesthesia administered and underwent a left anterior total hip arthroplasty. The patient tolerated the procedure well and was taken to the PACU in stable condition. Post-operatively the patient was started on a DVT ppx medication and given a ppropriate IV antibiotics. Consults were placed to physical therapy, occupational therapy and case management. On POD#1, the patient did well overnight and their pain was well controlled. Labs were drawn and the Hgb was 11.6. The patient progressed well with PT. Dressings were changed at this time and the incision was clean, dry and intact. The patients hospital stay was relatively uneventful and they were deemed stable by the orthopedic team and consultants to be discharged home with HH on 11/01/19. Discharge Instructions: Upon discharge the patient may weight bear as tolerates through their operative extremity. They were instructed to keep the incision clean and dry at all times. The patient may shower but should not submerge the incision, avoid bathing, pools and hot tubes. The patient was given a script for pain medication and should take as instructed. The patient was given a script for DVT ppx ASA BID and should take as directed. The patient was instructed to not drive or travel for long distances until cleared to do so. If the patient develops any symptoms of fevers, chills, nausea, vomiting, increased redness, swelling, pain or drainage from the surgical site, they should notify the office and/or proceed to the nearest emergency room. The patient should follow up in 10-14 days after surgery for their routine post-operative follow-up appointment and should call the office to confirm the date and time. s/p Left anterior RICHIE POD#1 -ancef x 24 -DVT ppx: SCDs, TEDs, ASA BID -WBAT LLE -PT/OT -PO XR demonstrates a well aligned well fixed prosthesis without fracture/dislocation - am labs - hgb 11.6 -DC planning - DC with HH Total Time Total Time Spent Total Time Spent (In Minutes): 30 minutes Discharge Plan Discharge Items Patient Disposition: Home - Home Health Services Reason For Visit: LEFT HIP OSTEOARTHRITIS Discharge Diagnosis: Left anterior total hip replacement Condition on Discharge: Good Activity: Per Instructions section Lifting: Wait until after follow-up appointment Bathing: Keep incision dry Bathing Comment: No bathing, pools or hot tubs. Sexual Activity: Wait until after follow-up appointment Exercise/Sports: Wait until after follow-up appointment Driving/Machine Use: No driving. Weightbearing: Full weightbearing Non-emergency contact: Primary Care Provider and Surgeon Call non-emergency contact if: you have any medication questions, your symptoms worsen, your pain is not controlled, your pain is worsening, your pain is unusual for you, your pain is concerning for you, you have a fever, your rectal temperature is above 100.4, your temperature is above 101, your wound has increased redness, your wound has increased drainage and your wound pain has increased Follow-up/Referrals: Cholo Paul MD [Primary Care Provider] - Diet: Regular Addtl Attending Provider Instructions: ACTIVITY RECOMMENDATIONS: SELF CARE INSTRUCTIONS AFTER TOTAL HIP REPLACEMENT : Direct Anterior Approach Until the incision and soft tissues around your hip have healed, there is a possibility that the hip prosthesis could dislocate. A. Hip flexion ( Up & Down out of chair or steps ) may be difficult. This is normal. B. Numbness in front of the thigh is also normal for a few weeks. C. Use hand rails when walking on stairs. D. Wear low heeled shoes with non-slip soles. E. Be sure that your floors are free of things that could trip you - throw rugs, electrical cords, small objects. Avoid wet and waxed floors, especially with crutches and canes. F. Try to walk several times a day with rest periods between. G. Continue with all the exercises taught to you in the hospital. Again, make walking a part of your daily routine. SPECIAL CARE INSTRUCTIONS: VERY IMPORTANT TO READ AND REVIEW A. You may still be at risk for phlebitis and blood clots. 1. Wear surgical stockings (BASILIO hose) for 2 weeks after surgery to improve circulation and reduce swelling. 2. Take Aspirin 325mg twice daily for 4 weeks or as directed by your doctor. This is your blood thinner. 3. High risk patients may be prescribed a stronger blood thinner if ne cessary. 4. If you are on Coumadin normally, your family doctor/forestry supervisor should monitor your blood work. Expect a phone call the day of or the day after bloodwork is drawn to adjust your dosage. B. You must take antibiotics before having dental work, bladder, bowel and other surgery. Your doctor will provide you with a permanent card to carry descr ibing precautions. C. Call [facility] if you have a fever, redness or swelling around the incision, cloudy drainage from incision, or sudden increase in pain in your hip, not relieved by your regular pain medication. D. Please call the office at if you have any concerns or questi ons about your operation or recovery. * YOU MAY SHOWER, NO TUB BATHS UNTIL CLEARED BY YOUR DOCTOR. - Keep an extra close eye on the top portion of your incision. Be sure to keep clean & dry. * WEAR BASILIO HOSE 20 HOURS PER DAY FOR 2 WEEKS. * YOU MAY PROGRESS FROM A WALKER, TO A CANE, TO INDEPENDENT AT YOUR OWN PACE. * MOST PATIENTS WILL HAVE HOME NURSING FOR THERAPY. IF YOU DECIDE TO DO OUTPATIENT PHYSICAL THERAPY, PLEASE SCHEDULE THIS 3 TIMES PER WEEK. * DERMABOND Prineo- This is a mesh tape dressing that is covered with glue. It should remain in place until the incision is properly healed, usually 10-14 days. This dressing is designed to naturally slough off. You may trim the excess mesh tape as it peels off. Incision may be briefly wet in a shower. Dry immediately by blotting with a clean, dry towel. Do not bath or swim until instructed by your doctor. Do not scratch, rub, or pick at the dressing. Do not apply any topical ointments or lotions until dressing is completely removed and/or instructed by your doctor. There may be a small piece of suture material at one end of your incision. Do not pull or trim this. If it is bothersome or catching on clothing, you may cover it with a band-aid. FOLLOW UP VISIT: If appointment is not already scheduled: Please call [facility] to make a follow-up appointment for 2 weeks after your surgery at . Pending Studies at Discharge: No Stand-Alone Forms: [facility], Opioid Pain Management, Smoking Cessation Medications and DC Order Prescriptions: New celecoxib [Celebrex] 200 mg Capsule 200 mg PO BID PRN (Reason: pain/inflammation ) Qty: 28 RF: 0 acetaminophen 500 mg Tablet 1,000 mg PO Q8 PRN (Reason: pain/fever) Qty: 90 RF: 0 aspirin 325 mg Tablet,Delayed Release (Dr/Ec) 325 mg PO BID 28 Days Qty: 56 RF: 0 oxycodone 5 mg Tablet 5 mg PO Q6H MDD 6 tabs PRN (Reason: pain) Qty: 30 RF: 0 sennosides [Senokot] 8.6 mg Tablet 17.2 mg PO HS PRN (Reason: constipation) Qty: 28 RF: 0 Continued calcium carbonate [Calcium 600] 600 mg calcium (1,500 mg) Tablet 600 mg PO HS RF: 0 flaxseed oil 1,000 mg Capsule 1,000 mg PO BID RF: 0 propranolol 40 mg Tablet 40 mg PO BID RF: 0 simvastatin 20 mg Tablet 20 mg PO HS RF: 0 multivitamin Capsule 1 cap PO HS RF: 0 Discharge Orders: Discharge Order (Routine); Ordered 11/11/19 Ordered By: J Luis Ingram/Other Patient Handouts: DVT Prevent Admission Data Admit Date/Time: 11/10/19 09:24 Attending Provider: J Luis Esquivel Admit Provider: J Luis Esquivel Primary Care Provider: Cholo Paul Other Interventions: Discharge Summary Assessment (RN) Last Done: 11/11/19 07:49 DC Date/Time DO NOT enter until pt leaves facility: 11/11/19 12:04
== END 2019-11-11 12:04 | disposition home health service (06) | DRG 470 ==
LOC: ASU 04:52 → 3E 09:24